=== PATIENT | female | born 2000 | race Caucasian/White ===

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

== ENCOUNTER 2019-05-01 22:18 | Emergency (ER) | payer SELFPAY ==
[2019-05-02] MEDS ORDERED: LIDOCAINE 1% INJ-PF (10 MG/ML) 30 ML SDV INJ ONE
--- NOTE | 2019-05-02 00:01 | ER Document Report ---
ED Medical Screen (RME) - General Chief Complaint: Vaginal Pain Stated Complaint: VAGINAL PAIN Time Seen by Provider: 05/01/19 23:56 Primary Care Provider: STU ESTRADA DO [Primary Care Provider] - Follow up as needed TRAVEL OUTSIDE OF THE U[place] IN LAST 30 DAYS: No - HPI Notes: 05/01/19 23:59 Patient is a 19-year-old female who presents complaining of possible abscess to the right medial proximal thigh has been there for the past few days. No history of MRSA. No drug allergies. No fever. I have treated and performed a rapid initial assessment of this patient. A c omprehensive ED assessment and evaluation of the patient, analysis of test results and completion of medical decision making process will be conducted by additional ED providers. PHYSICAL EXAMINATION: GENERAL: Well-appearing, well-nourished and in no acute distress. A&Ox4. Answers questions appropriately. Right proximal medial upper leg: There is an erythemic indurated fluctuant abscess noted. Tenderness associated. No active drainage or streaks. - Related Data Allergies/Adverse Reactions: No Known Allergies Allergy (Verified 04/18/17 20:29) Past Medical History - Social History Frequency of alcohol use: None Drug Abuse: None Renal/ Medical History: Denies: Hx Peritoneal Dialysis - Immunizations Immunizations up to date: Yes Hx Diphtheria, Pertussis, Tetanus Vaccination: Yes Physical Exam - Vital signs Vitals: Temp Pulse Resp BP Pulse Ox 99.9 F 111 H 20 163/102 H 99 05/01/19 22:27 05/01/19 22:27 05/01/19 22:27 05/01/19 22:27 05/01/19 22:27 Course - Vital Signs Vital signs: Temp Pulse Resp BP Pulse Ox 99.9 F 111 H 20 163/102 H 99 05/01/19 22:27 05/01/19 22:27 05/01/19 22:27 05/01/19 22:27 05/01/19 22:27 Doctor's Discharge - Discharge Referrals: STU ESTRADA DO [Primary Care Provider] - Follow up as needed
[2019-05-02] MEDS ORDERED: OXYCODONE-ACETAMINOPHEN 5-325 MG TABLET PO ONE (02:04)
[2019-05-02] MEDS ORDERED: CLINDAMYCIN HCL 150 MG CAPSULE PO ONE (02:47)
[2019-05-02] MEDS ORDERED: HYDROCODONE/ACETAMINOPHEN 5-325 MG (6 TAB/ER DISP) PO PRN (02:51)
--- NOTE | 2019-05-02 02:51 | ER Document Report ---
ED Skin Rash/Insect Bite/Abscs - General Chief Complaint: Abscess Stated Complaint: ABSCESS Time Seen by Provider: 05/01/19 23:56 Primary Care Provider: STU ESTRADA DO [NO LOCAL MD] - Follow up as needed Notes: RME NOTE: Patient is a 19-year-old female who presents complaining of possible abscess to the right medial proximal thigh has been there for the past few days. No history of MRSA. No drug allergies. No fever. MY HPI: Patient is otherwise healthy 19-year-old female presents to the emergency department with abscess to the right upper thigh. States she does typically shave her bikini area do not think she had an ingrown hair. States she has had this swelling and redness for the last 3 days. Patient's denying any fevers or history of MRSA. She is denying any history of abscess for the past. TRAVEL OUTSIDE OF THE [place] IN LAST 30 DAYS: No - Related Data Allergies/Adverse Reactions: No Known Allergies Allergy (Verified 04/18/17 20:29) Past Medical History - General Information source: Patient - Social History Smoking Status: Never Smoker Frequency of alcohol use: None Drug Abuse: None Family History: Reviewed & Not Pertinent Patient has suicidal ideation: No Patient has homicidal ideation: No Renal/ Medical History: Denies: Hx Peritoneal Dialysis - Immunizations Immunizations up to date: Yes Hx Diphtheria, Pertussis, Tetanus Vaccination: Yes Review of Systems - Review of Systems Constitutional: denies: Fever EENT: No symptoms reported Cardiovascular: No symptoms reported Respiratory: No symptoms reported Gastrointestinal: No symptoms reported Genitourinary: No symptoms reported Female Genitourinary: No symptoms reported Musculoskeletal: No symptoms reported Skin: See HPI Hematologic/Lymphatic: No symptoms reported Neurological/Psychological: No symptoms reported Physical Exam - Vital signs Vitals: Temp Pulse Resp BP Pulse Ox 99.9 F 111 H 20 163/102 H 99 05/01/19 22:27 05/01/19 22:27 05/01/19 22:27 05/01/19 22:27 05/01/19 22:27 - Notes Notes: GENERAL: Alert, interacts well. No acute distress. HEAD: Normocephalic, atraumatic. EYES: Pupils equal, round, and reactive to light. Extraocular movements intact. ENT: Oral mucosa moist, tongue midline. NECK: Full range of motion. Supple. Trachea midline. LUNGS: Clear to auscultation bilaterally, no wheezes, rales, or rhonchi. No respiratory distress. HEART: Regular rate and rhythm. No murmur ABDOMEN: Soft, non-tender. Non-distended. Bowel sounds present in all 4 quadrants. EXTREMITIES: Moves all 4 extremities spontaneously. No edema, normal radial and dorsalis pedis pulses bilaterally. No cyanosis. BACK: no cervical, thoracic, lumbar midline tenderness. No saddle anesthesia, normal distal neurovascular exam. NEUROLOGICAL: Alert and oriented x3. Normal speech. cranial nerves II through XII grossly intact PSYCH: Normal affect, normal mood. SKIN: Warm, dry, normal turgor. Large area approximately 7 cm x 6 cm noted in the right upper thigh. Fluctuance noted centrally with surrounding erythema. Course - Re-evaluation Re-evalutation: 05/02/19 02:48 I&D performed, patient tolerated well. See procedure note. Discussed close follow-up with primary care provider with close return precautions. Patient stable for discharge. - Vital Signs Vital signs: Temp Pulse Resp BP Pulse Ox 99.9 F 111 H 20 163/102 H 99 05/01/19 22:27 05/01/19 22:27 05/01/19 22:27 05/01/19 22:27 05/01/19 22:27 Procedures - Incision and Drainage Right thigh Type: Simple Anesthetic type: 1% Lidocaine mL's of anesthetic: 5 Blade size: 11 I&D procedure: Betadine prep applied, Sterile dressing applied Incision Method: Incision made by scalpel Amount/type of drainage: Copious, purulent Discharge - Discharge Clinical Impression: Abscess Cellulitis Qualifiers: Site of cellulitis: extremity Site of cellulitis of extremity: lower extremity Laterality: right Qualified Code(s): L03.115 - Cellulitis of right lower limb Condition: Stable Disposition: HOME, SELF-CARE Instructions: Post Incision and Drainage, Oral Narcotic Medication ([facility]), Abscess ([facility]), MRSA Cellulitis ([facility]) Additional Instructions: as we discussed you have been seen and treated in the emergency department for an abscess and surrounding skin tissue infection. Please take antibiotics as prescribed. Please also make sure you are soaking in warm water and Epson salt at least 3 times a day. Please know that if the redness and swelling is not decreasing after 48 hours of antibiotics she should return to the emergency department. Please also return to the emergency department for any other concerns. Prescriptions: Clindamycin HCl [Cleocin 150 mg Capsule] 300 mg PO Q8 7 Days capsule Forms: Return to Work Referrals: STU ESTRADA DO [NO LOCAL MD] - Follow up as needed
[2019-05-02 03:52] VITALS: BP 130/68
== END 2019-05-02 03:20 | disposition home or self-care (01) ==
LOC: ER 22:18
DX: L02.415 Cutaneous abscess of right lower limb (principal); L03.115 Cellulitis of right lower limb
CPT/HCPCS: 99283

== ENCOUNTER → 2019-11-04 | Outpatient (CLI) | payer SELFPAY ==
--- NOTE | 2019-11-04 11:28 | ER RDC ASSESSMENT REPORT ---
Intake - In the Last 14 days Have you traveled outside [place]?: No Have you been in close contact with someone CONFIRMED: No Worked in Healthcare?: No - Symptoms Subjective Fever([place] feverish): No Chills: No Muscule Aches: Yes Runny Nose: Yes Sore Throat: Yes Cough (New or worsening chronic cough): No Shortness of breath: No Nausea or Vomiting: No Headache: No Abdominal Pain: No Diarrhea(3 or more loose stools in last 24 hours): No - Do you have any of the following Chronic lung disease: Asthma or emphysema or COPD: No Cystic Fibrosis: No Diabetes: No High Blood Pressure: No Cardiovascular Disease: No Chronic Kidney Disease: No Chronic Liver Disease: No Chronic blood disorder like Sickle Cell Disease: No Weak immune system due to disease or medication: No Neurologic condition that limits movement: No Developmental delay - Moderate to Severe: No Recent (within past 2 weeks) or current : No Morbid Obesity (>100 pounds over ideal weight): No Obesity Comment: Height 5 feet 3 inches weight 180 pounds - Objective Temperature: 98.9 F Pulse Rate: 80 Respiratory Rate: 20 Blood Pressure: 156/82 O2 Sat by Pulse Oximetry: 97 Objective: Given above, testing performed: If Testing Performed: Test Specimen Type Sent to General - General Information source: Patient Notes: Patient here for COVID testing at the [facility]. She started feeling ill on Saturday body aches runny nose sore throat. Denies fever reports though started having what appeared to be a "pink eye" to the right eye. Waking up with crust draining. Denies local PCP [facility] uses urgent care needed. Unknown for COVID positive exposure. [facility] has been at [employer] every day shopping but does not wear a mask. Does not own a mask and does not have insurance - Related Data Allergies/Adverse Reactions: No Known Allergies Allergy (Verified 04/18/17 20:29) Past Medical History - General Information source: Patient - Social History Smoking Status: Never Smoker Family History: Reviewed & Not Pertinent Renal/ Medical History: Denies: Hx Peritoneal Dialysis Physical Exam - General General appearance: Appears well, Alert In distress: None Notes: PHYSICAL EXAMINATION: GENERAL: Well-appearing and in no acute distress. HEAD: Atraumatic, normocephalic. EYES: sclera anicteric, conjunctiva are normal to left. Right eye red and draining clear fluid. ENT: nares patent. Moist mucous membranes. NECK: Normal range of motion, supple without lymphadenopathy LUNGS: CTAB and equal. No wheezes rales or rhonchi. Resp even and unlabored. Lung sounds clear. HEART: Regular rate and rhythm without murmurs ABDOMEN: Soft, nontender, normal bowel sounds, no guarding. EXTREMITIES: No cyanosis. NEUROLOGICAL: Normal speech. PSYCH: Normal mood, normal affect. SKIN: Warm, Dry, normal turgor, Diagnostic Results Laboratory Results: Informed of negative rapid strep and negative rapid flu results. Pending strep culture pending COVID testing results> patient provided instructions regarding COVID to include: As a person under investigation for Covid 19, the [place] department of Health and Human Services, division of public health advises you to adhere to the following guidance until your test results are reported to you. If your test result is positive, you will receive additional information from your provider and your local health department at that time. Remain at home until you are cleared by the health provider or public health authorities. Keep a log of visitors to your home, notify any visitors to your home of your isolation status. If you plan to move to a new address or leave the county, notify the local health department in your County. Call your doctor or seek care if you have an urgent medical need. Before seeking medical care, call ahead to get instructions from the provider before arriving at the medical office clinic or hospital. Notify them that you are being tested for the virus that causes Covid 19 so that arrangements can be made, as necessary, to prevent transmission to others in the healthcare setting. Next, notify the local health department in your county. If a medical emergency arises and you need to call 911, inform the first responders that you are being tested for the virus that causes Covid 19. Next, notify the local health department in your county. Patient Education/Counseling Counseling/Education: Patient presents with upper respiratory symptoms worrisome for possible Covid 19. Patient does not have emergency worring symptoms such as difficulty breathing, shortness of breath, chest pain, pressure, confusion or cyanosis. Patient appears suitable for discharge. Patient instructed to follow up with Urgent Care or ED for persisent or worsening symptoms. Apply warm compress to right eye. Patient's vital signs are stable and patient is nontoxic in appearance. Good return precautions have been discussed with patient, patient verbalized understanding and is agreeable with discharge plan of care at this time. Called prescriptionPolymyxin B/Trimethoprim Ophthamlic 10,000 units/1mg/ML one gtt in affected eye QID for 7 days for Conjunctivitis right eye to [facility] (patient's preferred pharmacy). Patient instructed to follow up with Urgent Care or Optholmologist for continued or worsening symptoms. RDC Discharge - Discharge Clinical Impression: Conjunctivitis, COVID - 19 SCREENING Clinical Impression: (Ruled Out): Conjunctivitis due to Acanthamoeba Condition: Stable Disposition: Home; Selfcare
[2019-11-04 12:29] LABS: A TYPE INFLUENZA AG NEGATIVE (NEGATIVE); B INFLUENZA AG NEGATIVE (NEGATIVE)
[2019-11-04 15:41] VITALS: BP 156/82
== END ==
LOC: RDC 10:25
PROVIDERS: ATTEND Nurse Practitioner Family
DX: Z20.828 Contact with and (suspected) exposure to other viral communicable diseases (principal); H10.022 Other mucopurulent conjunctivitis, left eye; B60.12 Conjunctivitis due to Acanthamoeba; M79.10 Myalgia, unspecified site; J02.9 Acute pharyngitis, unspecified; R09.89 Other specified symptoms and signs involving the circulatory and respiratory systems
CPT/HCPCS: 87070; 87077; 87635; 87804; 87880; 99211

== ENCOUNTER 2020-05-05 19:22 | Emergency (ER) | payer SELFPAY ==
--- NOTE | 2020-05-05 20:27 | ER Document Report ---
ED ENT - General Chief Complaint: Sore Throat Stated Complaint: SORE THROAT Time Seen by Provider: 05/05/20 20:25 Primary Care Provider: EVA MCHUGH [NO LOCAL MD] - Follow up as needed Mode of Arrival: Ambulatory Information source: Patient Notes: 05/05/20 20:18 - ED Nursing Note by RITCHIE GARCIA Num: [id number] : 2000 Patient Age: 20 patient complains of a sore throat that started on 04/21/20. patient states it started out with a burning sensation and difficulty swallowing. patient states shes had an intermittent fever. patient states her last fever was over the weekend. patient denies nasal congestion patient breaths e/u, nad Initialized on 05/05/20 20:18 - END OF NOTE MY NOTES 20-year-old black female arrives with chief complaint of having 2 weeks of sore throat despite using mouthwashes and despite using salt water gargles. She denies anyone having Covid or influenza but advises she could have strep throat. She has a red throat and enlarged tonsils but her strep test today was negative. Patient admits to having oral sex with her partner and believes she may have a possibility of STD. She denies any vaginal discharge denies any dysuria denies any skin rash denies any headache or nuchal rigidity. TRAVEL OUTSIDE OF THE [place] IN LAST 30 DAYS: No - Related Data Allergies/Adverse Reactions: No Known Allergies Allergy (Verified 04/18/17 20:29) Past Medical History - General Information source: Patient - Social History Smoking Status: Never Smoker Cigarette use (# per day): No Chew tobacco use (# tins/day): No Smoking Education Provided: No Frequency of alcohol use: None Drug Abuse: None Lives with: Family Family History: Reviewed & Not Pertinent Patient has suicidal ideation: No Patient has homicidal ideation: No Renal/ Medical History: Denies: Hx Peritoneal Dialysis - Immunizations Immunizations up to date: Yes Hx Diphtheria, Pertussis, Tetanus Vaccination: Yes Review of Systems - Review of Systems Constitutional: No symptoms reported EENT: See HPI, Throat pain Cardiovascular: No symptoms reported Respiratory: No symptoms reported Gastrointestinal: No symptoms reported Genitourinary: No symptoms reported Female Genitourinary: No symptoms reported Musculoskeletal: No symptoms reported Skin: No symptoms reported Hematologic/Lymphatic: No symptoms reported Neurological/Psychological: No symptoms reported Physical Exam - Vital signs Vitals: Temp Pulse Resp BP Pulse Ox 98.4 F 107 H 18 167/107 H 100 05/05/20 20:04 05/05/20 20:04 05/05/20 20:04 05/05/20 20:04 05/05/20 20:04 Interpretation: Normal - General General appearance: Appears well, Alert - HEENT Head: Normocephalic, Atraumatic Eyes: Normal Pupils: PERRL External canal: Normal Sinus: Normal Nasal: Normal Mucous membranes: Normal Pharynx: Erythema, Tonsillar hypertrophy Neck: Normal, Anterior cervical chain - Respiratory Respiratory status: No respiratory distress Chest status: Nontender Breath sounds: Normal Chest palpation: Normal - Cardiovascular Rhythm: Regular Heart sounds: Normal auscultation Murmur: No - Abdominal Inspection: Normal Distension: No distension Bowel sounds: Normal Tenderness: Nontender Organomegaly: No organomegaly - Rectal Hemorrhoids: Other - Deferred - Genitourinary Bimanuel exam: Other - Deferred - Back Back: Normal, Nontender - Extremities General upper extremity: Normal inspection, Nontender, Normal color, Normal ROM, Normal temperature, Other - Patient does have false nails on all fingers with bleeding and Randolph type ornaments on all nails which took all day to perform according to patient. General lower extremity: Normal inspection, Nontender, Normal color, Normal ROM, Normal temperature, Normal weight bearing. No: Destiney's sign - Neurological Neuro grossly intact: Yes Cognition: Normal Orientation: AAOx4 Dermott Coma Scale Eye Opening: Spontaneous Roger Coma Scale Verbal: Oriented Roger Coma Scale Motor: Obeys Commands Roger Coma Scale Total: 15 Speech: Normal Motor strength normal: LUE, RUE, LLE, RLE Sensory: Normal - Psychological Associated symptoms: Normal affect, Normal mood - Skin Skin Temperature: Warm Skin Moisture: Dry Skin Color: Normal Course - Vital Signs Vital signs: Temp Pulse Resp BP Pulse Ox 98.4 F 107 H 18 167/107 H 100 05/05/20 20:04 05/05/20 20:04 05/05/20 20:04 05/05/20 20:04 05/05/20 20:04 - Laboratory Result Diagrams: 05/05/20 21:15 Laboratory results interpreted by me: 05/05/20 05/05/20 21:15 21:30 WBC 11.8 H Hgb 11.6 L Hct 35.8 L MCV 76 L MCH 24.7 L RDW 15.0 H Absolute Neuts (auto) 8.9 H Urine Blood SMALL H Critical Care Note - Critical Care Note Comments: Mononucleosis was negative as well as chlamydia and GC. I was contacted by nursing staff for bed 33 that after finishing her Rocephin and her right antecubital area IV her right hand and forearm had edema. This appears to be phlebitis and I advised her to elevate right arm and warm moist towels for the next 2 to 3 days. Discharge - Discharge Clinical Impression: Tonsillitis Pharyngitis Qualifiers: Pharyngitis/tonsillitis etiology: unspecified etiology Qualified Code(s): J02.9 - Acute pharyngitis, unspecified Phlebitis after infusion Qualifiers: Encounter type: initial encounter Qualified Code(s): T80.1XXA - Vascular complications following infusion, transfusion and therapeutic injection, initial encounter; I80.9 - Phlebitis and thrombophlebitis of unspecified site Condition: Stable Disposition: HOME, SELF-CARE Additional Instructions: Follow-up with ENT of choice return to ER if needed take medicines as directed encourage fluids; you may also follow-up with your private doctor about this. Often times false negative mono test and strep test can occur. They may need to be repeated in future. Also your phlebitis of your right forearm and hand need to be treated for the next 2 to 3 days. Try to keep right extremity elevated and avoid hanging the arm down. Either place right upper extremity in a sling or propped on a pillow elevated above heart. Return to ER if red streaking occurs. Prescriptions: Dexamethasone [Decadron 4 Mg Tablet] 4 mg PO DAILY #5 tablet Azithromycin [Zithromax 250 mg Tablet] 250 mg PO ASDIR PRN #6 tablet PRN Reason: Forms: Return to Work Referrals: LOCALMD,NO [NO LOCAL MD] - Follow up as needed
[2020-05-05] MEDS ORDERED: DEXAMETHASONE SOD PHOS INJ 10 MG/1 ML VIAL IV ONE (21:16)
[2020-05-05] MEDS ORDERED: CEFTRIAXONE INJ 1000 MG VIAL IV ONE (21:17)
[2020-05-05 21:41] LABS: ABSOLUTE BASOPHILS # (AUTO) 0.1 10^3/uL (0.0-0.2); ABSOLUTE EOSINOPHILS # (AUTO) 0.2 10^3/uL (0.0-0.6); ABSOLUTE LYMPHOCYTES (AUTO) 2.2 10^3/uL (0.5-4.7); ABSOLUTE MONOCYTES (AUTO) 0.4 10^3/uL (0.1-1.4); ABSOLUTE NEUT (AUTO) 8.9 10^3/uL (1.7-8.2); BASOPHILS % (AUTO) 0.5 % (0-2); EOSINOPHILS % (AUTO) 1.8 % (0-6); HEMATOCRIT 35.8 % (36.0-47.0); HEMOGLOBIN 11.6 g/dL (12.0-15.5); LYMPHOCYTES % (AUTO) 18.3 % (13-45); MEAN CORPUSCULAR HEMOGLOBIN 24.7 pg (27.0-33.4); MEAN CORPUSCULAR HGB CONC 32.5 g/dL (32.0-36.0); MEAN CORPUSCULAR VOLUME 76 fl (80-97); MONOCYTES % (AUTO) 3.7 % (3-13); PLATELET COUNT 428 10^3/uL (150-450); SEGMENTED NEUTROPHILS % (AUTO) 75.7 % (42-78); TOTAL CELLS COUNTED % (AUTO) 100 %; WHITE BLOOD COUNT 11.8 10^3/uL (4.0-10.5)
[2020-05-05 22:13] LABS: APPEARANCE,URINE SLIGHTLY-CLOUDY; BILIRUBIN,URINE NEGATIVE (NEGATIVE); COLOR,URINE YELLOW; GLUCOSE, URINE NEGATIVE (NEGATIVE); KETONES,URINE NEGATIVE (NEGATIVE); LEUKOCYTE ESTERASE,URINE NEGATIVE (NEGATIVE); NITRITE,URINE NEGATIVE (NEGATIVE); PROTEIN,URINE NEGATIVE (NEGATIVE); URINE SPECIFIC GRAVITY 1.024; UROBILINOGEN,URINE NEGATIVE mg/dL (<2.0)
[2020-05-05 23:43] LABS: CHLAM PCR NOT DETECTED (NOT DETECT)
[2020-05-06 00:29] VITALS: BP 155/107
== END 2020-05-06 00:15 | disposition home or self-care (01) ==
LOC: ER 19:22
DX: J03.90 Acute tonsillitis, unspecified (principal); R13.10 Dysphagia, unspecified; T80.1XXA Vascular complications following infusion, transfusion and therapeutic injection, initial encounter; I80.9 Phlebitis and thrombophlebitis of unspecified site; Y84.8 Other medical procedures as the cause of abnormal reaction of the patient, or of later complication, without mention of misadventure at the time of the procedure; Y92.230 Patient room in hospital as the place of occurrence of the external cause; Z20.2 Contact with and (suspected) exposure to infections with a predominantly sexual mode of transmission
CPT/HCPCS: 99284; 96375; 96365; 36415; 87070; 87880; 85025; 81025; 87077; 86308; 81001; 87491; 87591; J0696; J1100

== ENCOUNTER 2020-05-21 12:11 | Emergency (ER) | payer SELFPAY ==
--- NOTE | 2020-05-21 12:57 | ER Document Report ---
ED Medical Screen (RME) - General Chief Complaint: Vaginal Bleeding Stated Complaint: NEAR SYNCOPE Time Seen by Provider: 05/21/20 12:47 Primary Care Provider: STAN FARRAR MD [Primary Care Provider] - Follow up as needed Mode of Arrival: Ambulatory Information source: Patient Notes: HPI; 20-year-old female presents to the emergency room complaining of dizziness and lightheadedness that started this morning. Patient states she has been vaginal bleeding for the past 3 months and passing clots. States she is been having abnormal vaginal bleeding for the past several years after having her son. States she saw [facility] once but they did not do anything for her symptoms. Has not followed up since. 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 States symptoms worsened today after giving another plasma donation. PE: Alert and oriented x3. Lungs: Clear to auscultation without rales, rhonchi, wheezes. Heart: Tachycardic without murmurs, rubs, gallops. I have greeted and performed a rapid initial assessment of this patient. A comprehensive ED assessment and evaluation of the patient, analysis of test results and completion of the medical decision making process will be conducted by additional ED providers. I have specifically instructed the patient or family members with the patient to immediately return to any nursing staff should anything change in the patient's condition or with their chief complaint. TRAVEL OUTSIDE OF THE [place] IN LAST 30 DAYS: No - Related Data Allergies/Adverse Reactions: No Known Allergies Allergy (Verified 05/21/20 12:36) Past Medical History - Social History Chew tobacco use (# tins/day): No Frequency of alcohol use: None Drug Abuse: None Renal/ Medical History: Denies: Hx Peritoneal Dialysis - Immunizations Immunizations up to date: Yes Hx Diphtheria, Pertussis, Tetanus Vaccination: Yes Physical Exam - Vital signs Vitals: Temp Pulse Resp BP Pulse Ox 98.2 F 116 H 16 128/92 H 98 05/21/20 12:14 05/21/20 12:14 05/21/20 12:14 05/21/20 12:14 05/21/20 12:14 Course - Vital Signs Vital signs: Temp Pulse Resp BP Pulse Ox 98.2 F 116 H 16 128/92 H 98 05/21/20 12:36 05/21/20 12:14 05/21/20 12:14 05/21/20 12:14 05/21/20 12:14 Doctor's Discharge - Discharge Referrals: STAN FARRAR MD [Primary Care Provider] - Follow up as needed
[2020-05-21 13:36] LABS: ABSOLUTE EOSINOPHILS # (AUTO) 0.2 10^3/uL (0.0-0.6); ABSOLUTE LYMPHOCYTES (AUTO) 2.1 10^3/uL (0.5-4.7); ABSOLUTE MONOCYTES (AUTO) 0.5 10^3/uL (0.1-1.4); ABSOLUTE NEUT (AUTO) 10.7 10^3/uL (1.7-8.2); BASOPHILS % (AUTO) 0.3 % (0-2); EOSINOPHILS % (AUTO) 1.4 % (0-6); HEMATOCRIT 38.1 % (36.0-47.0); HEMOGLOBIN 12.2 g/dL (12.0-15.5); LYMPHOCYTES % (AUTO) 15.6 % (13-45); MEAN CORPUSCULAR HEMOGLOBIN 24.3 pg (27.0-33.4); MEAN CORPUSCULAR VOLUME 76 fl (80-97); PLATELET COUNT 407 10^3/uL (150-450); RED BLOOD COUNT 5.02 10^6/uL (3.72-5.28); RED CELL DISTRIBUTION WIDTH 15.6 % (11.5-14.0); SEGMENTED NEUTROPHILS % (AUTO) 78.7 % (42-78); TOTAL CELLS COUNTED % (AUTO) 100 %; WHITE BLOOD COUNT 13.6 10^3/uL (4.0-10.5)
[2020-05-21] MEDS ORDERED: NORMAL SALINE 1000 ML 1,000 ML IV ONE (13:49)
[2020-05-21 13:58] LABS: ALBUMIN 3.7 g/dL (3.5-5.0); ALKALINE PHOSPHATASE 61 U/L (38-126); ANION GAP 8 (5-19); ASPARTATE AMINO TRANSFERASE 26 U/L (14-36); BILIRUBIN,DIRECT 0.1 mg/dL (0.0-0.4); BILIRUBIN,TOTAL 0.4 mg/dL (0.2-1.3); BLOOD UREA NITROGEN 13 mg/dL (7-20); CARBON DIOXIDE 25 mmol/L (22-30); CHLORIDE 106 mmol/L (98-107); GLUCOSE 178 mg/dL (75-110); POTASSIUM 4.1 mmol/L (3.6-5.0); TOTAL PROTEIN 6.4 g/dL (6.3-8.2)
--- NOTE | 2020-05-21 15:27 | ER Document Report ---
Entered by JEET DEVLIN SCRIBE 05/21/20 3552 Acting as scribe for:ELVIA CRABTREE MD ED Syncope and Near Syncope - General Chief Complaint: Vaginal Bleeding Stated Complaint: NEAR SYNCOPE Time Seen by Provider: 05/21/20 12:47 Primary Care Provider: STAN FARRAR MD [ACTIVE STAFF] - Follow up as needed Mode of Arrival: Wheelchair Information source: Patient Notes: This 20 year old female patient presents to the ED today with complaints of a near-syncopal episode that occurred just prior to arrival. Patient states that she donated 880 ml of plasma this morning and on 05/19; she states that she was told that her blood pressure was high both times. Patient reportedly passed out and vomited while having her blood drawn in triage. Patient mentions that she has been having irregular periods off and on since giving in 2016 and that she has been on her current cycle for the past x3 months. She notes heavy vaginal bleeding with clots. She states that she was seen by [facility] in the past for this issue and was told it was related to stress; no follow-up since. She denies any control methods, , vaginal discharge, or abdominal pain. Denies any COVID concerns including fever, chills, cough, sore throat, or loss of taste/smell. TRAVEL OUTSIDE OF THE [place] IN LAST 30 DAYS: No - Related Data Allergies/Adverse Reactions: No Known Allergies Allergy (Verified 05/21/20 12:36) Past Medical History - General Information source: Patient - Social History Smoking Status: Never Smoker Cigarette use (# per day): No Chew tobacco use (# tins/day): No Smoking Education Provided: No Frequency of alcohol use: None Drug Abuse: None Lives with: Family Family History: Reviewed & Not Pertinent Patient has suicidal ideation: No Patient has homicidal ideation: No Past Surgical History: Reports: None - Immunizations Immunizations up to date: Yes Hx Diphtheria, Pertussis, Tetanus Vaccination: Yes Review of Systems - Review of Systems Constitutional: See HPI. denies: Chills, Fever EENT: See HPI. denies: Throat pain Cardiovascular: See HPI, Syncope Respiratory: See HPI. denies: Cough Gastrointestinal: See HPI, Vomiting. denies: Abdominal pain Genitourinary: No symptoms reported Female Genitourinary: See HPI, Heavy/abnormal periods, Irregular period, Vaginal bleeding. denies: , Vaginal discharge Musculoskeletal: No symptoms reported Skin: No symptoms reported Hematologic/Lymphatic: No symptoms reported Neurological/Psychological: No symptoms reported -: Yes All other systems reviewed and negative Physical Exam - Vital signs Vitals: Temp Pulse Resp BP Pulse Ox 98.2 F 116 H 16 128/92 H 98 05/21/20 12:14 05/21/20 12:14 05/21/20 12:14 05/21/20 12:14 05/21/20 12:14 Interpretation: Normal - General General appearance: Appears well, Alert In distress: None - HEENT Head: Normocephalic, Atraumatic Eyes: Normal. No: Pale conjunctiva Pupils: PERRL - Respiratory Respiratory status: No respiratory distress Chest status: Nontender Breath sounds: Normal Chest palpation: Normal - Cardiovascular Rhythm: Regular Heart sounds: Normal auscultation Murmur: No Friction rub: No Gallop: None auscultated - Abdominal Inspection: Obese Distension: No distension Bowel sounds: Normal Tenderness: Nontender - Abdomen soft Organomegaly: No organomegaly - Back Back: Normal, Nontender - Extremities General upper extremity: Normal inspection General lower extremity: Normal inspection. No: Edema - Neurological Neuro grossly intact: Yes Cognition: Normal Orientation: AAOx4 Roger Coma Scale Eye Opening: Spontaneous Roger Coma Scale Verbal: Oriented Roger Coma Scale Motor: Obeys Commands Roger Coma Scale Total: 15 Speech: Normal Motor strength normal: LUE, RUE, LLE, RLE Sensory: Normal - Psychological Associated symptoms: Normal affect, Normal mood - Skin Skin Temperature: Warm Skin Moisture: Dry Skin Color: Normal Course - Re-evaluation Re-evalutation: 05/21/20 15:51 Patient resting comfortably not showing any signs of distress. - Vital Signs Vital signs: Temp Pulse Resp BP Pulse Ox 98.2 F 116 H 16 128/92 H 98 05/21/20 12:36 05/21/20 12:14 05/21/20 12:14 05/21/20 12:14 05/21/20 12:14 05/21/20 15:52 Vital signs stable patient does not show any signs of orthostasis and blood pressure and pulse was checked in the lying sitting standing position - Laboratory Result Diagrams: 05/21/20 13:00 05/21/20 13:00 Laboratory results interpreted by me: 05/21/20 05/21/20 13:00 13:00 WBC 13.6 H MCV 76 L MCH 24.3 L RDW 15.6 H Absolute Neuts (auto) 10.7 H Seg Neutrophils % 78.7 H Glucose 178 H 05/21/20 15:52 Laboratories essentially unremarkable 13,000 white count and a glucose of 178. - Diagnostic Test Radiology reviewed: Image reviewed, Reports reviewed Radiology results interpreted by me: 05/21/20 15:52 Transvaginal US 05/21/20 12:52 IMPRESSION: NORMAL TRANSVAGINAL PELVIC ULTRASOUND. Transvaginal ultrasound normal transvaginal pelvic ultrasound no acute process. Discharge - Discharge Clinical Impression: Anxiety in acute stress reaction, Abnormal vaginal bleeding Condition: Stable Disposition: HOME, SELF-CARE Instructions: Vaginal Bleeding ([facility]) Referrals: STAN FARRAR MD [ACTIVE STAFF] - Follow up as needed TICO SELBY MD [ACTIVE STAFF] - Follow up in 1 week I personally performed the services described in the documentation, reviewed and edited the documentation which was dictated to the scribe in my presence, and it accurately records my words and actions.
--- NOTE | 2020-05-21 15:37 | RADIOLOGY REPORT (SQ) ---
EXAM DESCRIPTION: U/S NON OB PEL TV W/DOPPLER IMAGES COMPLETED DATE/TIME: 05/21/2020 2:48 pm REASON FOR STUDY: vaginal bleeding COMPARISON: None. TECHNIQUE: Dynamic and static grayscale images acquired of the pelvis via transvaginal approach and recorded on PACS. Additional selected color Doppler and spectral images recorded. LIMITATIONS: None. FINDINGS: UTERUS: Contour normal. No mass. ENDOMETRIAL STRIPE: No focal or generalized thickening. No masses. CERVIX: No nabothian cysts. RIGHT OVARY AND DOPPLER: Normal size. No worrisome masses. Normal arterial vascular flow without evid ence for torsion. LEFT OVARY AND DOPPLER: Normal size. No worrisome masses. Normal arterial vascular flow without evide nce for torsion. FREE FLUID: None noted. OTHER: No other significant finding. IMPRESSION: NORMAL TRANSVAGINAL PELVIC ULTRASOUND. TECHNICAL DOCUMENTATION: JOB ID: [id number] [employer]- All Rights Reserved Rev Reading location - IP/workstation name: [email or web address]
[2020-05-21 16:25] VITALS: BP 152/89
--- NOTE | 2020-05-21 18:48 | EKG REPORT ---
SEVERITY:- ABNORMAL ECG - SINUS RHYTHM PROBABLE LEFT VENTRICULAR HYPERTROPHY BORDERLINE T ABNORMALITIES, INFERIOR LEADS : Confirmed by: Gamal Menchaca MD 21-May-2020 18:48:06
== END 2020-05-21 16:25 | disposition home or self-care (01) ==
LOC: ER 12:11
DX: N92.1 Excessive and frequent menstruation with irregular cycle (principal); F43.0 Acute stress reaction; F41.9 Anxiety disorder, unspecified; R55 Syncope and collapse; R11.10 Vomiting, unspecified
CPT/HCPCS: 93005; 99285; 96360; 36415; 84703; 85025; 80053; 76830; 93976; 93010; J7030